=== PATIENT | male | born 1955 | race Caucasian/White ===

== ENCOUNTER 2016-06-02 08:55 | Emergency (ER) | payer OTHER ==
[~2016-06-02 08:55] MED LIST: ARI10 PO; FLO4 PO; NORCO1 TA2 PO
[2016-06-02 10:49] LABS: BASOPHIL % 0.7 % (0-2); PLATELET COUNT 209 x10^3mcL (130-400); RED CELL DISTRIBUTION WIDTH 13.4 % (11.5-14.5)
[2016-06-02 10:52] LABS: CALCIUM 8.5 mg/dL (8.5-10.1); CARBON DIOXIDE 25.7 mmol/L (21-32); CREATININE SERUM 1.5 mg/dL (0.7-1.3); POTASSIUM SERUM 4.1 mmol/L (3.5-5.1)
[2016-06-02 10:56] LABS: ALBUMIN 3.6 g/dL (3.4-5.0); BILIRUBIN TOTAL 0.37 mg/dL (0.20-1.00); TOTAL PROTEIN, SERUM 7.1 g/dL (6.4-8.2)
[2016-06-02 11:15] LABS: UA SPECIFIC GRAVITY 1.015 (1.005-1.035); microscopic required? YES; urine erythrocyte TRACE (NEGATIVE)
[2016-06-02 11:51] VITALS: BP 117/76
== END 2016-06-02 11:51 | disposition home or self-care (01) ==
LOC: ED 08:55
PROVIDERS: Emergency Medicine
DX: R10.9 Unspecified abdominal pain (principal); E78.00 Pure hypercholesterolemia, unspecified; I10 Essential (primary) hypertension; G89.29 Other chronic pain
CPT/HCPCS: 83880; J2270; J2405; J7030

== ENCOUNTER 2016-08-30 09:39 | Emergency (ER) | payer OTHER ==
[2016-08-30 10:17] LABS: BASOPHIL % 0.4 % (0-2); PLATELET COUNT 217 x10^3mcL (130-400); RED CELL DISTRIBUTION WIDTH 13.3 % (11.5-14.5)
[2016-08-30 10:40] LABS: CALCIUM 8.4 mg/dL (8.5-10.1); CARBON DIOXIDE 24.1 mmol/L (21-32); CREATININE SERUM 1.6 mg/dL (0.7-1.3)
[2016-08-30 10:44] LABS: ALBUMIN 3.7 g/dL (3.4-5.0); BILIRUBIN TOTAL 0.6 mg/dL (0.20-1.00); TOTAL PROTEIN, SERUM 7.3 g/dL (6.4-8.2)
[2016-08-30 12:09] VITALS: BP 130/96
== END 2016-08-30 11:30 | disposition home or self-care (01) ==
LOC: ED 09:39
PROVIDERS: Emergency Medicine
DX: R10.9 Unspecified abdominal pain (principal); R05 Cough; I10 Essential (primary) hypertension; E11.9 Type 2 diabetes mellitus without complications; F03.90 Unspecified dementia, unspecified severity, without behavioral disturbance, psychotic disturbance, mood disturbance, and anxiety; Z79.899 Other long term (current) drug therapy
CPT/HCPCS: 36415; J1885; J7512; J7613; J7644

== ENCOUNTER 2017-01-06 15:51 | Emergency (ER) | payer OTHER ==
[2017-01-06 19:18] LABS: UA SPECIFIC GRAVITY 1.025 (1.005-1.035); microscopic required? YES; urine erythrocyte TRACE (NEGATIVE)
[2017-01-06 20:00] VITALS: BP 113/76
== END 2017-01-06 20:00 | disposition home or self-care (01) ==
LOC: ED 15:51
PROVIDERS: Emergency Medicine
DX: M25.512 Pain in left shoulder (principal); N39.0 Urinary tract infection, site not specified; I10 Essential (primary) hypertension; E11.9 Type 2 diabetes mellitus without complications; G89.29 Other chronic pain

== ENCOUNTER 2017-05-31 16:03 | Emergency (ER) | payer MEDICARE, OTHER ==
[~2017-05-31] VITALS: Ht 165.1 cm; Wt 84.0 kg
[2017-05-31 16:23] VITALS: Ht 165.1 cm; Wt 84.0 kg
[2017-05-31 18:43] LABS: BASOPHIL % 0.6 % (0-2); PLATELET COUNT 205 x10^3mcL (130-400)
[2017-05-31 18:55] LABS: CALCIUM 8.4 mg/dL (8.5-10.1); CHLORIDE SERUM 104 mmol/L (98-107); CREATININE SERUM 1.6 mg/dL (0.7-1.3); GFR1 47 mL/min; GLUCOSE SERUM 89 mg/dL (74-106); POTASSIUM SERUM 4.2 mmol/L (3.5-5.1); SODIUM SERUM 139 mmol/L (136-145)
[2017-05-31 19:00] LABS: ALBUMIN 3.5 g/dL (3.4-5.0); ALKALINE PHOSPHATASE 90 U/L (46-116); ALT/SGPT 50 U/L (16-63); AST/SGOT 26 U/L (15-37); BILIRUBIN TOTAL 0.4 mg/dL (0.20-1.00); TOTAL PROTEIN, SERUM 6.8 g/dL (6.4-8.2)
[2017-05-31 19:08] LABS: CK-MB < 0.5 ng/mL (0-3.6); CREATINE KINASE 97 U/L (39-308)
[2017-05-31 19:12] LABS: AMPHETAMINE QUAL UR NONE DETECTED (NEG <=1000)
[2017-05-31 19:50] VITALS: BP 109/69
== END 2017-05-31 19:50 | disposition home or self-care (01) ==
LOC: ED 16:03
PROVIDERS: Emergency Medicine
DX: R42 Dizziness and giddiness (principal); I10 Essential (primary) hypertension; E11.9 Type 2 diabetes mellitus without complications; G89.29 Other chronic pain; M54.9 Dorsalgia, unspecified; G30.9 Alzheimer's disease, unspecified; F02.80 Dementia in other diseases classified elsewhere, unspecified severity, without behavioral disturbance, psychotic disturbance, mood disturbance, and anxiety
CPT/HCPCS: 82962; G0480; J2405; J8597; Q0092

== ENCOUNTER 2018-02-22 10:04 | Emergency (ER) | payer OTHER ==
[~2018-02-22] VITALS: Ht 165.1 cm; Wt 85.7 kg
[2018-02-22 10:16] VITALS: Ht 165.1 cm; Wt 85.7 kg
[2018-02-22 10:48] LABS: BASOPHIL % 0.9 % (0-2); PLATELET COUNT 198 x10^3mcL (130-400); RED CELL DISTRIBUTION WIDTH 13.7 % (11.5-14.5)
[2018-02-22 11:08] LABS: CALCIUM 8.3 mg/dL (8.5-10.1); CARBON DIOXIDE 28.3 mmol/L (21-32); CREATININE SERUM 1.8 mg/dL (0.7-1.3); POTASSIUM SERUM 4.4 mmol/L (3.5-5.1)
[2018-02-22 11:13] LABS: ALBUMIN 3.7 g/dL (3.4-5.0); BILIRUBIN TOTAL 0.79 mg/dL (0.20-1.00); TOTAL PROTEIN, SERUM 6.9 g/dL (6.4-8.2)
[2018-02-22 14:54] VITALS: BP 119/75
== END 2018-02-22 14:54 | disposition home or self-care (01) ==
LOC: ED 10:04
PROVIDERS: Emergency Medicine
DX: J40 Bronchitis, not specified as acute or chronic (principal); R07.89 Other chest pain; I10 Essential (primary) hypertension; E11.9 Type 2 diabetes mellitus without complications; G30.9 Alzheimer's disease, unspecified; E78.00 Pure hypercholesterolemia, unspecified; G89.29 Other chronic pain; M54.9 Dorsalgia, unspecified
CPT/HCPCS: 36415; 83880; 85378; J1885; Q0092

== ENCOUNTER 2018-03-12 09:08 | Inpatient (IN) | payer BC, OTHER ==
[~2018-03-12] VITALS: Ht 165.1 cm; Wt 83.5 kg
[2018-03-12 09:23] VITALS: Ht 165.1 cm; Wt 83.5 kg
--- NOTE | 2018-03-12 09:44 | NUR ---
MSE COMPLETED BY DR PICKARD.
--- NOTE | 2018-03-12 09:45 | NUR ---
PT BIB SIGNIFICANT OTHER PT C/O EPIGASTRIC PAIN X4DAYS NO N/V/D PT AWAKE AND ALERT ORIENTATION NORMAL TO SELF PT HX OF ALZHEIMERS. DENIES CHEST PAIN/SOB ABDOMEN SOFT NONTENDER TO PALPATION PT GOWNED INSTRUCTED TO PROVIDE URINE SAMPLE STACI URINAL PROVIDED. SIGNIFICANT OTHER AT BEDSIDE. AWATING MD ORDERS WILL MONITOR
[2018-03-12 10:06] LABS: BASOPHIL % 0.5 % (0-2); PLATELET COUNT 208 x10^3mcL (130-400); RED CELL DISTRIBUTION WIDTH 13.4 % (11.5-14.5)
[2018-03-12 10:22] LABS: CALCIUM 7.9 mg/dL (8.5-10.1); CARBON DIOXIDE 27.3 mmol/L (21-32); CREATININE SERUM 1.5 mg/dL (0.7-1.3); POTASSIUM SERUM 4.3 mmol/L (3.5-5.1)
[2018-03-12 10:33] LABS: ALBUMIN 3.5 g/dL (3.4-5.0); BILIRUBIN TOTAL 0.55 mg/dL (0.20-1.00); T4(THYROXINE) 6.8 ug/dL (4.7-13.3); TOTAL PROTEIN, SERUM 6.9 g/dL (6.4-8.2)
[2018-03-12 10:38] LABS: UA SPECIFIC GRAVITY >=1.030 (1.005-1.035); microscopic required? YES; urine erythrocyte TRACE (NEGATIVE)
[2018-03-12 10:51] LABS: AMPHETAMINE QUAL UR NONE DETECTED (See below)
--- NOTE | 2018-03-12 11:30 | NUR ---
PT AWAKE AND ALERT NO DISTRESS ON CM SINUS RAH ASYMPTOMATIC PT TO BE ADMITTED PT AGREED WILL MONITOR
[2018-03-12] MEDS ORDERED: LIPI20 (12:18)
[2018-03-12] MEDS ORDERED: LISINOPRIL2.5 MG (12:18)
--- NOTE | 2018-03-12 12:37 | NUR ---
REPORT GIVEN TO ANASTASIA SANDOVAL RESUMING CARE OF PT.
--- NOTE | 2018-03-12 12:44 | NUR ---
PT TO TELE FLOOR AT THIS TIME. VIA GURNEY ON PORTABLE CM NO DISTRESS. IV SITE PATENT . DEVEN SANDOVAL AND [facility] TRANSPORTING PT. ANASTASIA SANDOVAL RESUMING CARE OF PT IN TELE FLOOR
[2018-03-12 13:22] VITALS: BP 132/79
--- NOTE | 2018-03-12 13:34 | NUR ---
RECEIVED PATIENT VIA GURNEY FROM ER NURSE. PATIENT ABLE TO AMBULATE FROM GURNEY TO BED WITH STEADY GAIT. PATIENT RESTING COMFORTABLY IN BED. NO APPARENT DISTRESS OR DISCOMFORT NOTED. BREATHING EVEN AND UNLABORED. NO RESPIRATORY DISTRES NOTED. 2L NC IN PLACE AND PATIENT TOLERATING WELL. NO INDICATION OF CHEST PAIN. PATIENT ON TELE MONITOR 9 WITH SINUS RAH AND ASYMPTOMATIC. PATIENT C/O / PAIN WILL MEDICATE PER EMAR. IV PATENT AND INTACT TO LAC. MRSA NARES SWAB COMPLETE AWAITING ORDERS. ALL QUESTIONS AND CONCERNS ADDRESSED. ALL NEEDS ATTENDED TO. CALL LIGHT WITHIN REACH. WILL CONTINUE TO MONITOR
--- NOTE | 2018-03-12 15:09 | NUR ---
PATIENT DOWN TO CT SCAN AT THIS TIME. SPORTS [employer]PAR[employer] INTERNS[employer]IP AWARE. WILL MONITOR WHEN BACK ON UNIT
--- NOTE | 2018-03-12 15:50 | NUR ---
PATIENT BACK FROM CT SCAN AT THIS TIME. NO APPARENT DISTRESS NOTED. WILL CONTINUE TO MONITOR
[2018-03-12 17:30] VITALS: BP 116/78
--- NOTE | 2018-03-12 18:00 | NUR ---
PATIENT RESTING COMFORTABLY IN BED AT THIS TIME. NO APPARENT DISTRESS OR DISCOMFORT NOTED. WATCHING TV. ALL NEEDS ATTENDED TO. WILL CONTINUE TO MONITOR
--- NOTE | 2018-03-12 18:34 | NUR ---
PATIENT RESTING COMFORTABLY IN CHAIR AT THIS TIME. NO DISTRESS OR DISCOMFORT NOTED. IV PATENT AND INTACT AND INFUSING D5 NORMAL SALINE. PATIENT TOLERATING WELL. ALL QUESTIONS AND CONCERNS ADDRESSED. SAFETY PRECAUTIONS MAINTAINED. ALL NEEDS ATTENDED TO. WILL ENDORSE ALL CARE TO HOME SERVICE CONSULTANT NURSE
--- NOTE | 2018-03-12 19:53 | NUR ---
PT RECIEVED FROM THE DAY SHIFT RN. PT IS ALERT AND ORIENTED X4, PT IS AWAKE AND IN BD WATCHING TV AT THIS TIME. NO ACUTE DISTRESS NOTED, SAFETY AND COMFORT MEASURES MAINTAINED, BED IN LOWEST POSITION, CALL LIGHT WITHIN REACH. WILL CONTINUE TO MONITOR AT THIS TIME.
[2018-03-12 21:35] VITALS: BP 121/72
--- NOTE | 2018-03-13 02:10 | NUR ---
PT IS RESTING IN BED WITH EYES CLOSED AT THIS TIME. NO ACUTE DISTRESS NOTED. PT IS NPO AT 0000 ON 03/13/18. SAFETY AND COMFORT MEASURES MAINTAINED, BED IN LOWEST POSITION, CALL LIGHT WITHIN REACH. WILL CONTINUE TO MONITOR AT THIS TIME.
--- NOTE | 2018-03-13 04:13 | NUR ---
PT IS RESTING IN BED WITH EYES CLOSED AT THIS TIME. NO ACUTE DISTRESS NOTED, BED IN LOWEST POSITION, IV IS INTACT AND INFUSING WELL, CALL LIGHT WITHIN REACH, WILL CONTINUE TO MONITOR AT THIS TIME.
--- NOTE | 2018-03-13 05:28 | NUR ---
PT HAS RESTED IN INTERMITTENT INTERVALS THROUGHOUT THE SHIFT. PT IS AWAKE AND ALERT AT THIS TIME WITH NO ACUTE DISTRESS NOTED. IV IS INTACT AND INFUSING WELL. PT HAS BEEN CALM AND COOPERATIVE WITH CARE, PT PROCEDURE CHECKLIST COMPLETED, CONSENT IS SIGNED, PT HAS NO QUESTIONS AT THIS TIME. SAFETY AND COMFORT MEASURES MAINTAINED, CALL LIGHT WITHIN REACH. WILL ENDORSE CONTINUITY OF CARE TO THE ONCOMING RN. WILL CONTINUE TO MONITOR AT THIS TIME.
[2018-03-13 06:19] LABS: BASOPHIL % 0.5 % (0-2); PLATELET COUNT 187 x10^3mcL (130-400); RED CELL DISTRIBUTION WIDTH 13.3 % (11.5-14.5)
[2018-03-13 06:28] LABS: CALCIUM 7.9 mg/dL (8.5-10.1); CARBON DIOXIDE 26.4 mmol/L (21-32); CREATININE SERUM 1.4 mg/dL (0.7-1.3); POTASSIUM SERUM 4.2 mmol/L (3.5-5.1)
[2018-03-13 06:30] VITALS: BP 116/75
--- NOTE | 2018-03-13 07:00 | NUR ---
RECEIVED REPORT FROM WOMEN'S STUDIES LECTURER NURSE AT THIS TIME. PATIENT RESTING COMFORTABLY IN BED. NO APPARENT DISTRESS OR DISCOMFORT NOTED. BREATHING EVEN AND UNLABORED. PATIENT DENIES SHORTNESS OF BREATH. PATIENT DENIES CHEST PAIN AT THIS TIME. IV INTACT AND INFUSING FLUIDS WELL. ALL QUESTIONS AND CONCERNS ADDRESSED. ALL NEEDS ATTENDED TO. WILL CONTINUE TO MONITOR
[2018-03-13 08:56] VITALS: BP 120/76
--- NOTE | 2018-03-13 09:33 | NUR ---
PATIENT NPO FOR SCHEDULED EGD TODAY. ALL QUESTIONS AND CONCERNS ADDRESSED. ALL NEEDS ATTENDED TO. WILL CONTINUE TO MONITOR
--- NOTE | 2018-03-13 10:40 | NUR ---
PATIENT GOING DOWN FOR EGD AT THIS TIME. BENZENE WASHER AWARE. ALL NEEDS ATTENDED TO. WILL CONTINUE TO MONITOR
--- NOTE | 2018-03-13 11:55 | NUR ---
PATIENT BACK FROM PROCEDURE AT THIS TIME. PATIENT RESTING COMFORTABLY IN BED. NO APPARENT DISTRESS NOTED. VITAL SIGNS STABLE. TELE IN PLACE AND QUALITY CONTROL TECHNICIAN AWARE. IV PATENT AND INTACT INFUSING IV FLUIDS. ALL QUESTIONS AND CONCERNS ADDRESSED. PATIENT INFORMED OF CLEAR LIQUID DIET FOR LUNCH. ALL NEEDS ATTENDED TO. WILL CONTINUE TO MONITOR
--- NOTE | 2018-03-13 12:46 | NUR ---
PATIENT SITTING UP ON SIDE OF BED EATING LUNCH AT THIS TIME. PATIENT TOLERATING DIET FAIRLY. NO APPARENT DISTRESS NOTED. PATIENT DENIES ABD PAIN AT THIS TIME. ALL NEEDS ATTENDED TO. WILL CONTINUE TO MONITOR
[2018-03-13 13:14] VITALS: BP 115/75
[2018-03-13 13:41] VITALS: BP 115/75
--- NOTE | 2018-03-13 16:12 | NUR ---
PATIENT STABLE TO BE DISCHARGED TO HOME. DISCHARGE INSTRUCTIONS GIVEN WELL EDUCATION. INSTRUCTED PATIENT ABOUT FOLLOW UP APPOINTMENT. PATIENT VERBALIZES UNDERSTANDING. IV REMOVED WITH CATH INTACT. ID BANDS REMOVED. TELE MONITOR REMOVED AND RETURNED TO TERRITORY SUPERVISOR. ALL BELONGINGS WITH PATIENT. ALL QUESTIONS AND CONCERNS ADDRESSED. ALL NEEDS ATTENDED TO. NO APPARENT DISTRESS NOTED. ESCORTED DOWN BY APPEALS REPRESENTATIVE. TO DRIVE PATIENT HOME.
== END 2018-03-13 16:11 | disposition home or self-care (01) | DRG 383 ==
LOC: ED 09:08 → DU 11:55
PROVIDERS: Emergency Medicine; Internal Medicine; ADMIT Internal Medicine
PROC: 0DB68ZX Excision of Stomach, Via Natural or Artificial Opening Endoscopic, Diagnostic (ICD-10-PCS; 2018-03-13)
PROC: 0DB98ZX Excision of Duodenum, Via Natural or Artificial Opening Endoscopic, Diagnostic (ICD-10-PCS; principal; 2018-03-13 12:00)
DX: K27.9 Peptic ulcer, site unspecified, unspecified as acute or chronic, without hemorrhage or perforation (principal); K85.90 Acute pancreatitis without necrosis or infection, unspecified; E86.0 Dehydration; K22.2 Esophageal obstruction; K44.9 Diaphragmatic hernia without obstruction or gangrene; K29.70 Gastritis, unspecified, without bleeding; K29.80 Duodenitis without bleeding; N20.0 Calculus of kidney; G30.9 Alzheimer's disease, unspecified; F02.80 Dementia in other diseases classified elsewhere, unspecified severity, without behavioral disturbance, psychotic disturbance, mood disturbance, and anxiety; E78.00 Pure hypercholesterolemia, unspecified; Z68.28 Body mass index [BMI] 28.0-28.9, adult
CPT/HCPCS: 43235; 83880; C9113; J1200; J1610; J2250; J2310; J3010; J3490; J7030; J7042; J7070; Q9967

== ENCOUNTER 2018-06-15 09:46 | Emergency (ER) | payer BC, OTHER ==
[~2018-06-15] VITALS: Ht 165.1 cm; Wt 77.1 kg
[~2018-06-15 09:46] MED LIST changes: +LIPI20; +LISINOPRIL2.5 MG
--- NOTE | 2018-06-15 10:02 | NUR ---
PT AWAKE AND ALERT. PT C/O C/P X3 DAYS WITH SOB. PT REPORTS THE PAIN RADIATES TO THE BACK. PT ABLE TO SPEAK IN COMPLETED SENTNECES. NO RESPIRATORY DISTRESS NOTED. PT ON FULL CM. MSE COMPLETED BY DR PAGAN.
[2018-06-15 10:04] VITALS: Ht 165.1 cm; Wt 77.1 kg
--- NOTE | 2018-06-15 11:03 | NUR ---
RT AT BEDSIDE FOR BREATHING TREATMENT
--- NOTE | 2018-06-15 11:05 | NUR ---
PT MEDICATED PER DOCTORS ORDERS
[2018-06-15 11:17] LABS: CALCIUM 8.5 mg/dL (8.5-10.1); CARBON DIOXIDE 25.3 mmol/L (21-32); CREATININE SERUM 1.5 mg/dL (0.7-1.3); POTASSIUM SERUM 4.1 mmol/L (3.5-5.1)
[2018-06-15 11:22] LABS: ALBUMIN 3.7 g/dL (3.4-5.0); BILIRUBIN TOTAL 0.3 mg/dL (0.20-1.00); TOTAL PROTEIN, SERUM 7.3 g/dL (6.4-8.2)
[2018-06-15 11:33] LABS: BASOPHIL % 0.6 % (0-2); PLATELET COUNT 211 x10^3mcL (130-400); RED CELL DISTRIBUTION WIDTH 13.6 % (11.5-14.5)
[2018-06-15 12:35] LABS: microscopic required? NO
[2018-06-15 12:56] LABS: urine erythrocyte NEGATIVE (NEGATIVE)
[2018-06-15] MEDS ORDERED: ENALAPRIL MALEA20 MG PO (13:14)
[2018-06-15] MEDS ORDERED: SIMVASTATIN20 M1 PO (13:15)
--- NOTE | 2018-06-15 13:18 | NUR ---
TELEPHONE ADMISSION ORDERS RECEIVFED FROM DR. AMADOR.
--- NOTE | 2018-06-15 14:13 | NUR ---
PT SIGNED AMA. DR PAGAN AWARE.
[2018-06-15 14:18] VITALS: BP 98/69
== END 2018-06-15 14:18 | disposition left against medical advice (07) ==
LOC: ED 09:46 → DU 13:20
PROVIDERS: Emergency Medicine
DX: R07.89 Other chest pain (principal); M54.9 Dorsalgia, unspecified; R10.9 Unspecified abdominal pain; I10 Essential (primary) hypertension; E11.9 Type 2 diabetes mellitus without complications; G89.29 Other chronic pain; E78.00 Pure hypercholesterolemia, unspecified; Z90.49 Acquired absence of other specified parts of digestive tract; Z90.89 Acquired absence of other organs; Z98.890 Other specified postprocedural states
CPT/HCPCS: 36415; J7030; J7613; Q0092

== ENCOUNTER 2018-08-18 09:23 | Emergency (ER) | payer BC, OTHER ==
[~2018-08-18] VITALS: Ht 165.1 cm; Wt 85.3 kg
[~2018-08-18 09:23] MED LIST changes: +ENALAPRIL MALEA20 MG PO; +SIMVASTATIN20 M1 PO
[2018-08-18 09:29] VITALS: Ht 165.1 cm; Wt 85.3 kg
[2018-08-18 10:36] LABS: BASOPHIL % 0.9 % (0-2); PLATELET COUNT 176 x10^3mcL (130-400); RED CELL DISTRIBUTION WIDTH 13.3 % (11.5-14.5)
[2018-08-18 10:44] LABS: CALCIUM 8.7 mg/dL (8.5-10.1); CARBON DIOXIDE 26.9 mmol/L (21-32); CREATININE SERUM 1.6 mg/dL (0.7-1.3); POTASSIUM SERUM 4.4 mmol/L (3.5-5.1)
[2018-08-18 10:48] LABS: ALBUMIN 3.5 g/dL (3.4-5.0); BILIRUBIN TOTAL 0.45 mg/dL (0.20-1.00); TOTAL PROTEIN, SERUM 6.5 g/dL (6.4-8.2)
[2018-08-18 11:11] VITALS: BP 108/55
== END 2018-08-18 11:11 | disposition home or self-care (01) ==
LOC: ED 09:23
PROVIDERS: Emergency Medicine
DX: N20.0 Calculus of kidney (principal); K59.00 Constipation, unspecified; I10 Essential (primary) hypertension; E11.9 Type 2 diabetes mellitus without complications; G89.29 Other chronic pain; E78.00 Pure hypercholesterolemia, unspecified; Z90.49 Acquired absence of other specified parts of digestive tract; Z90.89 Acquired absence of other organs
CPT/HCPCS: J1885; J2405; J7030

== ENCOUNTER 2018-11-17 07:05 | Inpatient (IN) | payer BC, OTHER ==
[~2018-11-17] VITALS: Ht 165.1 cm; Wt 86.7 kg
[2018-11-17 07:19] VITALS: Ht 165.1 cm; Wt 86.7 kg
[2018-11-17 08:04] LABS: BASOPHIL % 0.4 % (0-2); PLATELET COUNT 193 x10^3mcL (130-400); RED CELL DISTRIBUTION WIDTH 13.3 % (11.5-14.5)
[2018-11-17 08:06] LABS: UA SPECIFIC GRAVITY 1.025 (1.005-1.035); microscopic required? YES; urine erythrocyte 1+ (NEGATIVE)
[2018-11-17 08:14] LABS: CARBON DIOXIDE 26.4 mmol/L (21-32); CREATININE SERUM 2.6 mg/dL (0.7-1.3); POTASSIUM SERUM 4.3 mmol/L (3.5-5.1)
[2018-11-17 08:18] LABS: ALBUMIN 3.4 g/dL (3.4-5.0); BILIRUBIN TOTAL 0.8 mg/dL (0.20-1.00); TOTAL PROTEIN, SERUM 6.6 g/dL (6.4-8.2)
[2018-11-17] MEDS ORDERED: ZESTRIL20 MG PO (11:05)
[2018-11-17 13:35] VITALS: BP 126/72
[2018-11-17 16:53] VITALS: BP 103/57
[2018-11-17 19:58] VITALS: BP 102/57
[2018-11-18 01:21] LABS: AMPHETAMINE QUAL UR NONE DETECTED (See below)
[2018-11-18 04:41] VITALS: BP 102/60
[2018-11-18 07:44] LABS: BASOPHIL % 0.4 % (0-2); PLATELET COUNT 160 x10^3mcL (130-400); RED CELL DISTRIBUTION WIDTH 13.8 % (11.5-14.5)
[2018-11-18 07:45] LABS: CALCIUM 7.6 mg/dL (8.5-10.1); CARBON DIOXIDE 19.5 mmol/L (21-32); CREATININE SERUM 2.5 mg/dL (0.7-1.3); MAGNESIUM 2.1 mg/dL (1.8-2.4); PHOSPHOROUS 3.6 mg/dL (2.5-4.9); POTASSIUM SERUM 4.9 mmol/L (3.5-5.1)
[2018-11-18 09:15] VITALS: BP 104/59
[2018-11-18 16:41] VITALS: BP 112/66
[2018-11-18 20:20] VITALS: BP 118/68
[2018-11-19 05:38] VITALS: BP 109/63
[2018-11-19 06:44] LABS: BASOPHIL % 0.4 % (0-2); PLATELET COUNT 143 x10^3mcL (130-400); RED CELL DISTRIBUTION WIDTH 13.4 % (11.5-14.5)
[2018-11-19 07:02] LABS: CALCIUM 7.6 mg/dL (8.5-10.1); CARBON DIOXIDE 23.4 mmol/L (21-32); CREATININE SERUM 2.8 mg/dL (0.7-1.3); MAGNESIUM 1.7 mg/dL (1.8-2.4); PHOSPHOROUS 3.4 mg/dL (2.5-4.9); POTASSIUM SERUM 4.6 mmol/L (3.5-5.1)
[2018-11-19 09:21] VITALS: BP 118/71
[2018-11-19 14:12] VITALS: BP 118/71
== END 2018-11-19 15:10 | disposition home or self-care (01) | DRG 640 ==
LOC: ED 07:05 → MU 11:09
PROVIDERS: Emergency Medicine; Internal Medicine; ADMIT General Practice
DX: E86.0 Dehydration (principal); N17.0 Acute kidney failure with tubular necrosis; N13.2 Hydronephrosis with renal and ureteral calculous obstruction; I12.9 Hypertensive chronic kidney disease with stage 1 through stage 4 chronic kidney disease, or unspecified chronic kidney disease; N18.9 Chronic kidney disease, unspecified; N40.1 Benign prostatic hyperplasia with lower urinary tract symptoms; R39.11 Hesitancy of micturition; E83.51 Hypocalcemia; G30.9 Alzheimer's disease, unspecified; F02.80 Dementia in other diseases classified elsewhere, unspecified severity, without behavioral disturbance, psychotic disturbance, mood disturbance, and anxiety; R73.03 Prediabetes; Z68.29 Body mass index [BMI] 29.0-29.9, adult; Z90.49 Acquired absence of other specified parts of digestive tract; Z86.11 Personal history of tuberculosis; Z87.442 Personal history of urinary calculi; Z98.1 Arthrodesis status
CPT/HCPCS: G0378; J1885; J2270; J2405; J7030; Q0092

== ENCOUNTER 2019-03-07 22:06 | Emergency (ER) | payer BC, OTHER ==
[~2019-03-07] VITALS: Ht 165.1 cm; Wt 83.0 kg
[~2019-03-07 22:06] MED LIST changes: +ZESTRIL20 MG PO
[2019-03-07 22:14] VITALS: Ht 165.1 cm; Wt 83.0 kg
[2019-03-07 23:14] LABS: BASOPHIL % 0.8 % (0-2); PLATELET COUNT 229 x10^3mcL (130-400); RED CELL DISTRIBUTION WIDTH 13.6 % (11.5-14.5)
[2019-03-07 23:33] LABS: ALBUMIN 3.7 g/dL (3.4-5.0); BILIRUBIN TOTAL 0.6 mg/dL (0.20-1.00); CALCIUM 8.3 mg/dL (8.5-10.1); CARBON DIOXIDE 28.9 mmol/L (21-32); CREATININE SERUM 1.5 mg/dL (0.7-1.3); POTASSIUM SERUM 4.4 mmol/L (3.5-5.1); TOTAL PROTEIN, SERUM 7.1 g/dL (6.4-8.2)
[2019-03-08 01:37] LABS: UA SPECIFIC GRAVITY 1.025 (1.005-1.035); microscopic required? YES; urine erythrocyte TRACE (NEGATIVE)
[2019-03-08 03:16] VITALS: BP 115/68
== END 2019-03-08 03:16 | disposition home or self-care (01) ==
LOC: ED 22:06
PROVIDERS: Emergency Medicine
DX: N20.0 Calculus of kidney (principal); E78.00 Pure hypercholesterolemia, unspecified; G30.9 Alzheimer's disease, unspecified; F02.80 Dementia in other diseases classified elsewhere, unspecified severity, without behavioral disturbance, psychotic disturbance, mood disturbance, and anxiety
CPT/HCPCS: J1885; J2270; J2405; J7030

== ENCOUNTER 2019-11-29 11:41 | Emergency (ER) | payer BC, OTHER ==
[~2019-11-29] VITALS: Ht 167.6 cm; Wt 84.8 kg
[2019-11-29 11:52] VITALS: Ht 167.6 cm; Wt 84.8 kg
[2019-11-29 13:03] LABS: microscopic required? NO
[2019-11-29 13:04] LABS: CALCIUM 8.1 mg/dL (8.5-10.1); CREATININE SERUM 1.5 mg/dL (0.7-1.3); POTASSIUM SERUM 4.6 mmol/L (3.5-5.1)
[2019-11-29 13:05] LABS: BASOPHIL % 0.7 % (0-2); PLATELET COUNT 195 x10^3mcL (130-400); RED CELL DISTRIBUTION WIDTH 13.6 % (11.5-14.5)
[2019-11-29 13:08] LABS: ALBUMIN 3.5 g/dL (3.4-5.0); BILIRUBIN TOTAL 0.46 mg/dL (0.20-1.00); TOTAL PROTEIN, SERUM 6.8 g/dL (6.4-8.2)
[2019-11-29 14:26] LABS: UA SPECIFIC GRAVITY 1.025 (1.005-1.035); urine erythrocyte NEGATIVE (NEGATIVE)
[2019-11-29 14:28] VITALS: BP 131/68
== END 2019-11-29 14:28 | disposition home or self-care (01) ==
LOC: ED 11:41
PROVIDERS: Emergency Medicine
DX: T16.2XXA Foreign body in left ear, initial encounter (principal); K40.20 Bilateral inguinal hernia, without obstruction or gangrene, not specified as recurrent; I10 Essential (primary) hypertension; E11.9 Type 2 diabetes mellitus without complications; E78.00 Pure hypercholesterolemia, unspecified; G89.29 Other chronic pain; Z90.89 Acquired absence of other organs; Z90.49 Acquired absence of other specified parts of digestive tract; W45.8XXA Other foreign body or object entering through skin, initial encounter; Y93.89 Activity, other specified; Y92.89 Other specified places as the place of occurrence of the external cause; Y99.8 Other external cause status
CPT/HCPCS: J1885